=== PATIENT | female | born 1940 | race Caucasian/White ===

== ENCOUNTER 2019-11-23 09:42 | Emergency (ER) | payer MEDICARE, SELFPAY ==
[2019-11-23 09:45] VITALS: BP 183/88; PULSE 76; RESP 18; TEMP 36.9; O2SAT 100
--- NOTE | 2019-11-23 10:11 | ED.GENADULT ---
HPI - General Adult General Chief complaint: Skin/Abscess/Foreign Body Stated complaint: Poison Blanca Time Seen by Provider: 11/23/19 10:10 Source: patient and family Mode of arrival: ambulatory Limitations: no limitations History of Present Illness HPI narrative: Patient is a 78-year-old female who presents for evaluation of worsening poison blanca rash. Patient reports initially rash started on her left lower extremity and over the past week has spread to her other lower extremity, both arms, vaginal area buttock area. Patient reports itching and blistering. No fever. No pain with urination. No history of rash such as in the past. Patient's had poison blanca last week but recovered uneventfully. No purulent discharge, patient does report some leaking blisters. Related Data Allergies Allergy/AdvReac Type Severity Reaction Status Date / Time No Known Allergies Allergy Verified 11/23/19 10:57 Review of Systems Review of Systems: Narrative: CONSTITUTIONAL: Denies fever, chills, or sweats. ENT: Denies rhinorrhea, congestion, sore throat, or otalgia. CARDIOVASCULAR: Denies chest pain RESPIRATORY: Denies cough or dyspnea. GASTROINTESTINAL: Denies abdominal pain, nausea, vomiting, or diarrhea. GENITOURINARY: Denies dysuria or hematuria. SKIN: Reports diffuse rash, itching, blisters MUSCULOSKELETAL: Denies back pain, joint pain, or myalgia. NEUROLOGIC: Denies headache, numbness, or weakness. [facility] Past Medical History Medical History (Updated 11/23/19 @ 11:20 by Paula Powell MD) A-fib Hypertension Surgical History Surgical History (Updated 11/23/19 @ 11:20 by Paula Powell MD) No pertinent past surgical history Social History Social History (Updated 11/23/19 @ 11:20 by Paula Powell MD) Smoking status: Never smoker Alcohol intake: never Substance use: never Living arrangements: with family Gender identity (if verbalized by the patient): Female Exam Narrative: Exam Narrative: GENERAL: Awake, alert, conversant HEAD: Normocephalic, atraumatic. EYES: PERRLA and EOMI. ENT: Nares clear, no rhinorrhea or epistaxis. Mucous membranes moist. NECK: Supple. CHEST: No respiratory distress, breathing even and non labored HEART: Regular rate, sinus rhythm ABDOMEN:Non distended, non tender EXTREMITIES: Normal range of motion. No edema. SKIN: Blistered lesions, linear distribution in lower extremities, posterior knees, scattered to chin, neck, thorax, upper forearms, scattered blisters present NEURO:No focal deficits. Alert and oriented x3 Course Course Emergency Course: Patient on the patient's presenting symptoms, these lesions seem most consistent with some sort of contact dermatitis, delayed hypersensitivity reaction. There is no distribution to think that this would be herpes or shingles. Patient with history of poison blanca exposure outside a week ago and has had symptoms worsening since that time. Patient reports itching, edema and redness with blisters. Her exam is very consistent with this. I do not see any impose superinfected sites at this point. We will go ahead and start the patient on steroids, patient was given first intramuscular injection of methylprednisolone given widespread nature of her lesions, I spoke with her primary care provider to let them know what was going on with the patient, and advised close follow-up for her. I educated the patient extensively on wound care. We talked about various [id number] treatment modalities as well. Patient was then discharged home. Vital Signs Vital signs: Vital Signs Temperature 36.9 C 11/23/19 09:45 Pulse Rate 76 11/23/19 09:45 Respiratory Rate 18 11/23/19 09:45 Blood Pressure 183/88 H 11/23/19 09:45 Pulse Oximetry 100 11/23/19 09:45 Temperature 36.9 C 11/23/19 09:45 Pulse Rate 76 11/23/19 09:45 Respiratory Rate 18 11/23/19 09:45 Blood Pressure 183/88 H 11/23/19 09:45 Pulse Oximetry 100 11/23/19 09:
[2019-11-23] MEDS: methylPREDNISolone SOD SUCC 125 MG VIAL IM (11:18)
== END 2019-11-23 11:57 | disposition home or self-care (01) ==
PROVIDERS: Emergency Provider Emergency Medicine
DX: L23.7 Allergic contact dermatitis due to plants, except food (principal); I48.91 Unspecified atrial fibrillation; I10 Essential (primary) hypertension
CPT/HCPCS: 96372; 99283; J2930